=== PATIENT | male | born 1995 | race Caucasian/White ===

== ENCOUNTER 2021-01-30 06:57 | Day surgery (SDC) | payer OTHER ==
[~2021-01-30] VITALS: Ht 167.6 cm; Wt 88.4 kg
[2021-01-30 07:20] VITALS: BP 121/69; PULSE 50; TEMP 98.3
[2021-01-30] MEDS ORDERED: PROTONIX 40MG T40 MG PO (07:30)
[2021-01-30 09:25] VITALS: BP 127/67; PULSE 57; TEMP 97.8
--- NOTE | 2021-01-30 09:25 | NUR ---
PATIENT BROUGHT BACK TO [facility] VIA CART. PLACED ON MONITORS, VITAL SIGNS STABLE. AT BEDSIDE TO BRING PATIENT HOME. DENIES PAIN OR NAUSEA. REQUESTING WATER MUFFIN AND ICE CREAM. REPORT RECIEVED FROM JESUS ALBERTO RN, ALL QUESTIONS ANSWERED. WARM BLANKET PROVIDED, CALL ELIAS WITHIN REACH. WILL CONTINUE TO MONITOR.
[2021-01-30 09:40] VITALS: BP 129/62; PULSE 71
--- NOTE | 2021-01-30 09:40 | NUR ---
TOLERATING FOOD AND DRINK WITHOUT DIFFICULTY. MD AT BEDSIDE TO DISCUSS RESULTS. WILL CONTINUE TO MONITOR.
[2021-01-30 09:55] VITALS: BP 134/74; PULSE 67
--- NOTE | 2021-01-30 09:55 | NUR ---
PATIENT STATES HE WOULD LIKE TO GO HOME AT THIS TIME. VITAL SIGNS STABLE. IV REMOVED, INTACT. PATIENT TO GET DRESSED AT THIS TIME.
--- NOTE | 2021-01-30 10:15 | NUR ---
DISCHARGE INSTRUCTIONS REVIEWED WITH PATIENT AND . ALL QUESTIONS ANSWERED. PATIENT BROUGHT DOWN TO LOBBY VIA WHEELCHAIR. ALL BELONGINGS IN HAND.
== END 2021-01-30 10:15 | disposition home or self-care (01) ==
LOC: SDCO 06:57
DX: K29.50 Unspecified chronic gastritis without bleeding (principal); K21.9 Gastro-esophageal reflux disease without esophagitis; K92.0 Hematemesis; K25.4 Chronic or unspecified gastric ulcer with hemorrhage; Z20.822 Contact with and (suspected) exposure to COVID-19; Z79.899 Other long term (current) drug therapy
CPT/HCPCS: J2704; J7030